=== PATIENT | male | born 1960 | race Caucasian/White ===

== ENCOUNTER 2016-07-16 11:54 | Emergency (ER) | payer OTHER ==
[~2016-07-16] VITALS: Ht 182.9 cm; Wt 110.0 kg
[~2016-07-16 11:54] MED LIST: B-CO1CAP3 PO; MISC1CAP65 PO
[2016-07-16 12:01] VITALS: Ht 182.9 cm; Wt 110.0 kg
[2016-07-16] MEDS ORDERED: IBUPROFEN 200 MG TAB PO STA (12:17)
[2016-07-16] MEDS ORDERED: SODIUM CHLORIDE 0.9% 1000ML 1,000 ML IV STA (12:17)
[2016-07-16] MEDS ORDERED: ACETAMINOPHEN 500 MG TAB PO STA (12:17)
[2016-07-16] MEDS ORDERED: ONDANSETRON INJ 2 MG/ML 2 ML VIAL IV STA (12:17)
--- NOTE | 2016-07-16 12:19 | EMERGENCY ROOM VISIT NOTE ---
History Report prepared by Chely: Tera Romero Under the Supervision of: Dr. James Shea M.D. First contact with patient: 12:10 Chief Complaint: ILLNESS Stated Complaint: LIGHT HEADEDNESS, DIZZY, NAUSEA History of Present Illness The patient is a 55 year old male who presents to the Emergency Room with complaints of a persistent illness that has worsened over the past few days. He says he was sick around [place] with a head cold, and then he started coughing. There has also been concern over the patient's white blood count, but the doctor did not tell the patient or his family what the problem was. Per the patient, his energy level has been dropping over the past few days. He just came back from a trip to [place]. The patient has been having a high fever over the past few days as well as a sore throat. He complains of abdominal pain that he describes as a soreness due to his hernia. 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 Source of History: patient Onset: Over past few days Position: other (global - illness) Timing: worsening Associated Symptoms: + cough, + fatigue (energy level dropping), + fevers, + sorethroat Note: Associated symptoms: Cold symptoms for a few weeks. Review of Systems See HPI for pertinent positives & negatives. A total of 10 systems reviewed and were otherwise negative. Past Medical & Surgical Medical Problems: (1) H/O wisdom tooth extraction (2) Kidney disease (3) Pneumonia (4) Urinary problem Family History FH: cancer FH: diabetes mellitus FH: heart disease FH: seizures Social History Smoking Status: Former Smoker Marital Status: Housing Status: lives with family Occupation Status: unemployed Current/Historical Medications Scheduled B-Complex Vitamins (B Complex), 1 CAP PO DAILY Garlic (Garlic), 1 TAB PO DAILY Vitamin E (Vitamin E 400 Iu), 400 INTER.UNIT PO DAILY Zinc Sulfate (Orazinc), 1 TAB PO DAILY Allergies Coded Allergies: Dust (Unverified Allergy, Mild, SNEEZING, 07/16/16) Uncoded Allergies: BLOOD PLATELETS (Adverse Reaction, Mild, RASH, 07/16/16) GAVE STRONG BENADRYL FOR REACTION Physical Exam Vital Signs Date Time Temp Pulse Resp B/P Pulse Ox O2 Delivery O2 Flow Rate FiO2 07/16/16 15:25 91 20 113/71 94 Room Air 07/16/16 14:44 94 26 115/74 95 Room Air 07/16/16 13:18 39.2 95 20 119/59 94 Room Air 07/16/16 12:01 39.2 107 18 130/81 99 Room Air Physical Exam CONSTITUTIONAL: Mild distress. HEENT: No icterus, moist mucous membranes NECK: No meningismus, trachea is midline. CARDIOVASCULAR: Regular rate, normal perfusion RESPIRATORY: Unlabored breathing. Clear to auscultation. GASTROINTESTINAL: Umbilical hernia, mild chronic tenderness to palpation without acute change. GENITOURINARY: No flank tenderness MUSCULOSKELETAL: Full range of motion NEUROLOGIC: No acute gross focal deficits. PSYCHIATRIC: Normal affect SKIN: Normal for ethnicity. Medical Decision & Procedures ER Provider Diagnostic Interpretation: X-ray results as stated below per interpretation by me and the radiologist. CHEST 2 VIEWS ROUTINE CLINICAL HISTORY: Fever, lightheadedness, dizziness, nausea. AML. COMPARISON STUDY: 06/30/2016 FINDINGS: The cardiac and mediastinal contours remain stable. There is a right-sided A-Port catheter. There is no focal pulmonary consolidation. There is no failure. There are no pleural effusions. Slight indistinctness of the left cardiophrenic angle is likely secondary to a fat pad. Degenerative changes are present within the dorsal spine.[ IMPRESSION: No active disease in the chest. Electronically signed by: Giacomo King M.D. 07/16/2016 1:55 PM Dictated Date/Time: 07/16/2016 1:54 PM Laboratory Results 07/16/16 13:05 Red Blood Count 2.97, Mean Corpuscular Volume 92.9, Mean Corpuscular Hemoglobin 31.0, Mean Corpuscular Hemoglobin Concent 33.3, Mean Platelet Volume 10.6 07/16/16 13:05 Test 07/16/16 12:40 07/16/16 13:05 07/16/16 13:17 07/16/16 13:30 Influenza Type A Antigen Neg for Influ A (NEG) Influenza Type B Antigen Neg for Influ B (NEG) White Blood Count 91.85 K/uL (4.8-10.8) Red Blood Count 2.97 M/uL (4.7-6.1) Hemoglobin 9.2 g/dL (14.0-18.0) Hematocrit 27.6 % (42-52) Mean Corpuscular Volume 92.9 fL (80-100) Mean Corpuscular Hemoglobin 31.0 pg (25-34) Mean Corpuscular Hemoglobin Concent 33.3 g/dl (32-36) Platelet Count 319 K/uL (130-400) Mean Platelet Volume 10.6 fL (7.4-10.4) RDW Standard Deviation 52.6 fL (36.4-46.3) RDW Coefficient of Variation 15.6 % (11.5-14.5) Neutrophils % (Manual) 1.0 % Lymphocytes % (Manual) 8.0 % Monocytes % (Manual) 10.0 % Basophils % (Manual) 1.0 % (0-2) Blast Cells % 80.0 % Neutrophils # (Manual) 0.92 K/uL (1.4-6.5) Total Absolute Neutrophils 0.92 K/uL (1.4-6.5) Lymphocytes # (Manual) 7.35 K/uL (1.2-3.4) Total Absolute Lymphocytes 7.35 K/uL (1.2-3.4) Monocytes # (Manual) 9.19 K/uL (0.11-0.59) Basophils # (Manual) 0.92 K/uL (0-0.2) Blast Cells # 73.48 K/uL (0-0) Eitan Rods PRESENT Red Blood Cell Morphology Unremarkable Peripheral Blood Smear Path Consult Anion Gap 12.0 mmol/L (3-11) Est Creatinine Clear Calc Drug Dose 105.7 ml/min Estimated GFR () 97.1 Estimated GFR (Non- 83.8 BUN/Creatinine Ratio 11.9 (10-20) Calcium Level 9.1 mg/dl (8.5-10.1) Total Bilirubin 0.3 mg/dl (0.2-1) Direct Bilirubin 0.1 mg/dl (0-0.2) Aspartate Amino Transf (AST/SGOT) 23 U/L (15-37) Alanine Aminotransferase (ALT/SGPT) 26 U/L (12-78) Alkaline Phosphatase 77 U/L (45-117) Total Protein 8.0 gm/dl (6.4-8.2) Albumin 3.2 gm/dl (3.4-5.0) Procalcitonin 0.28 ng/mL (0-0.5) Bedside Lactic Acid Venous 0.86 mmol/L (0.90-1.70) Urine Color DK YELLOW Urine Appearance CLEAR (CLEAR) Urine pH 5.0 (4.5-7.5) Urine Specific Finley 1.018 (1.000-1.030) Urine Protein 1+ (NEG) Urine Glucose (UA) NEG (NEG) Urine Ketones NEG (NEG) Urine Occult Blood NEG (NEG) Urine Nitrite NEG (NEG) Urine Bilirubin NEG (NEG) Urine Urobilinogen NEG (NEG) Urine Leukocyte Esterase NEG (NEG) Urine WBC (Auto) 1-5 /hpf (0-5) Urine RBC (Auto) 0-4 /hpf (0-4) Urine Hyaline Casts (Auto) 1-5 /lpf (0-5) Urine Epithelial Cells (Auto) 10-20 /lpf (0-5) Urine Bacteria (Auto) NEG (NEG) Labs reviewed by ED physician. Medications Administered Medications (Trade) Dose Ordered Sig/Sophie Route Start Time Stop Time Status Last Admin Dose Admin Acetaminophen (Tylenol Tab) 1,000 mg NOW STAT PO 07/16/16 12:17 07/16/16 12:20 DC 07/16/16 12:44 1,000 MG Ibuprofen 400 mg 400 mg NOW STAT PO 07/16/16 12:17 07/16/16 12:20 DC 07/16/16 12:44 400 MG Sodium Chloride (Nss 1000ml) 1,000 ml @ 0 mls/hr Q0M STAT IV 07/16/16 12:17 07/16/16 12:20 DC 07/16/16 13:15 0 MLS/HR Ondansetron HCl (Zofran Inj) 4 mg NOW STAT IV 07/16/16 12:17 07/16/16 12:20 DC 07/16/16 13:15 4 MG Piperacillin Sod/ Tazobactam Sod (Zosyn Iv) 4.5 gm NOW STAT IV 07/16/16 14:20 07/16/16 14:21 DC 07/16/16 14:43 4.5 GM Levofloxacin (Levaquin Tab) 500 mg STK-MED ONCE .ROUTE 07/16/16 14:41 07/16/16 14:42 DC 07/16/16 14:45 500 MG ED Course 1211: Past medical records reviewed. The patient was evaluated in room C4. A complete history and physical examination was performed. 1217: Ordered Zofran Inj 4 mg IV, NSS 1000 ml @ 0 mls/hr Wide Open IV, Advil Tab 400 mg PO, Tylenol Tab 1000 mg PO. 1420: Ordered Zosyn IV 4.5 gm IV, Levaquin Tab 500 mg PO. 1425: I reevaluated the patient and he is resting comfortably. The patient and his family verbally expressed agreement and understanding of the treatment plan. The patient will be discharged and he will head to [place] by vehicle. 1430: I discussed the patient with Dr. Merlene [facility]. Medical Decision Differential diagnoses include: viral syndrome, oncologic process, bacterial infection. 55-year-old h/o AML successfully treated Spring 2015 presents to the emergency room with family for evaluation of generalized fatigue and fever for several days. He notes he was recently in the emergency room around [place] for similar complaints and was subsequently discharged after which she went on vacation in [place]. He received word from his doctor that there was an abnormality in his blood work while on vacation and that he should have repeated. He reports that he was unable to obtain this lab work in [place] as there were some obstacles around obtaining insurance coverage. He began to feel increasingly unwell and subsequently flew back to [place] and presented to the emergency room for evaluation. He was noted to have a fever of 39.3 and was hemodynamically WNL. He appeared unwell but clearly not toxic on my exam. He was noted to have WBCs 92 with 80% blasts. I subsequently spoke with patient's oncologist at [place], Dr. Blunt, and arranged for direct admission. Patient family refused transportation and preferred to leave immediately to go to [place]. Given the fever Zosyn IV and Levaquin 500 mg by mouth given prior to patient's departure. He appeared nontoxic with normal vital signs at the time of discharge. Consults Time Called: 1425 Consulting Physician: Dr. Merlene [facility] Returned Call: 1430 I discussed the patient with Dr. Merlene [facility] Medicine. Impression Primary Impression: AML (acute myelogenous leukemia) Critical Care I have personally spent greater than 30 minutes of critical care time in the direct management of this patient. This was a life/limb threatening event. This includes time spent evaluating the patient, direct bedside care, chart review, placing orders, interpretation of diagnostic studies, discussion with consultants, patient, and family members, as well as other required patient management activities. This 30 minutes is in excess of all separately billable procedures. Scribe Attestation The scribe's documentation has been prepared under my direction and personally reviewed by me in its entirety. I confirm that the note above accurately reflects all work, treatment, procedures, and medical decision making performed by me. Departure Information Dispostion Home / Self-Care Referrals Kasey Aguayo C.R.N.P (PCP) Forms HOME CARE DOCUMENTATION FORM, IMPORTANT VISIT INFORMATION Patient Instructions A Signature Page, My [facility] Additional Instructions GO DIRECTLY TO THE [facility]. GO PAST THE ER ENTRANCE TO THE MAIN HALLWAY AND LET THEM KNOW YOU ARE A DIRECT ADMIT. PLEASE CALL [phone], OPTION 3 WITH ANY CONCERNS OR CONFUSION. You received Zosyn 4.5g IV and Levaquin 500 mg PO prior to discharge from our ER today. (-) CXR, (-) flu. WBC 92, Blasts 80%, HgB 9.
[2016-07-16] MEDS ORDERED: VITA400C3 PO (12:24)
[2016-07-16] MEDS ORDERED: ZINC220C2 PO (12:24)
[2016-07-16] MEDS ORDERED: GARL400T2 PO (12:24)
[2016-07-16 13:18] VITALS: TEMP 39.2
[2016-07-16 13:46] LABS: BUN/CREATININE RATIO 11.9 (10-20); CALCIUM 9.1 mg/dl (8.5-10.1); POTASSIUM 3.1 mmol/L (3.5-5.1)
--- NOTE | 2016-07-16 13:57 | DIAGNOSTIC IMAGING REPORT ---
CHEST 2 VIEWS ROUTINE CLINICAL HISTORY: Fever, lightheadedness, dizziness, nausea. AML. COMPARISON STUDY: 06/30/2016 FINDINGS: The cardiac and mediastinal contours remain stable. There is a right-sided A-Port catheter. There is no focal pulmonary consolidation. There is no failure. There are no pleural effusions. Slight indistinctness of the left cardiophrenic angle is likely secondary to a fat pad. Degenerative changes are present within the dorsal spine.[ IMPRESSION: No active disease in the chest. Electronically signed by: Giacomo King M.D. 07/16/2016 1:55 PM Dictated Date/Time: 07/16/2016 1:54 PM
[2016-07-16 14:17] LABS: HEMATOCRIT 27.6 % (42-52); MEAN CELL VOLUME 92.9 fL (80-100); MEAN CORPUSCULAR HGB CONC 33.3 g/dl (32-36); MEAN PLATELET VOLUME 10.6 fL (7.4-10.4); PLATELET COUNT 319 K/uL (130-400); RED BLOOD COUNT 2.97 M/uL (4.7-6.1); WHITE BLOOD COUNT 91.85 K/uL (4.8-10.8)
[2016-07-16] MEDS ORDERED: PIPERACILLIN/TAZOBACTAM 4.5 GM/100ML D5W IV STA (14:20)
[2016-07-16 14:25] LABS: BASO ABS # 0.92 K/uL (0-0.2); LYMPH ABS # 7.35 K/uL (1.2-3.4)
[2016-07-16] MEDS ORDERED: LEVOFLOXACIN 500 MG TAB PO SCH (14:30)
[2016-07-16 14:37] LABS: URINE APPEARANCE CLEAR (CLEAR); URINE BILIRUBIN NEG (NEG); URINE COLOR DK YELLOW; URINE NITRITE NEG (NEG); URINE SPECIFIC GRAVITY 1.018 (1.000-1.030); UROBILINOGEN NEG (NEG); ZZUR CULT IF INDIC CLEAN CATCH NO
[2016-07-16] MEDS ORDERED: LEVOFLOXACIN 250 MG TAB ONE (14:41)
[2016-07-16 14:42] LABS: MANUAL MICROSCOPIC REQUIRED? NO; REVIEW REQ? NO
[2016-07-16 15:25] VITALS: BP 113/71; PULSE 91; O2SAT 94
[2016-07-16 22:38] LABS: COMPLETE YES
[2016-07-19 13:38] LABS: NEO FLOW LYMPH/LEUK STND SEE NEO MISC
== END 2016-07-16 15:30 | disposition short-term general hospital (02) ==
LOC: C.EDB 11:57 → C.EDC 15:30
DX: C92.00 Acute myeloblastic leukemia, not having achieved remission (principal); N28.9 Disorder of kidney and ureter, unspecified; K57.92 Diverticulitis of intestine, part unspecified, without perforation or abscess without bleeding; Z80.9 Family history of malignant neoplasm, unspecified; Z83.3 Family history of diabetes mellitus; Z82.49 Family history of ischemic heart disease and other diseases of the circulatory system; Z87.891 Personal history of nicotine dependence